=== PATIENT | female | born 1955 | race Caucasian/White ===

== ENCOUNTER 2016-03-20 13:26 | Inpatient (IN) | payer OTHER ==
[~2016-03-20] VITALS: Ht 167.6 cm; Wt 116.2 kg
[~2016-03-20 13:26] MED LIST: CALTTAB PO; CITA20 PO; METF500 PO; OXYC1SOL5 PO; PRIN20TA2 PO; RIVA10 PO; VITA200017 PO; WELLTAB39 PO; Z.0.WALKERFRONT
[2016-03-20 13:31] VITALS: BP 174/91; PULSE 87; RESP 18; TEMP 98.2; O2SAT 96
[2016-03-20] MEDS ORDERED: METF500T PO (17:26)
[2016-03-20] MEDS ORDERED: LISI-515 PO (17:26)
[2016-03-20] MEDS ORDERED: WELLTAB39 PO (17:26)
[2016-03-20] MEDS ORDERED: VITA100064 PO (17:26)
[2016-03-20] MEDS ORDERED: CELE20TA PO (17:26)
[2016-03-20 17:29] VITALS: BP 160/91; PULSE 82; RESP 18; O2SAT 98
--- NOTE | 2016-03-20 17:49 | PD ---
HPI Chief Complaint: Bite or Sting Time Seen by Provider: 17:28 Travel History International Travel<30 days: No Contact w/Intl Traveler<30days: No Traveled to known affect area: No History of Present Illness HPI 60-year-old female complains of pain swelling on the left fifth finger with redness extending to the left arm today. Patient got bit by her own cat Last night. Patient states that she had small amount of pus draining from the left fifth finger today. Patient states that she noticed redness streaking extending from the left fifth finger of her left hand and left forearm to the elbow. Patient denies any fever chills. Patient's up-to-date with TD booster. PFSH Past Medical History Hx Anticoagulant Therapy: No Arthritis: Yes Blood Disorders: No Heart Rhythm Problems: No Cancer: No Cardiac Catheterization: No Cardiovascular Problems: Yes (HTN) High Cholesterol: Yes Chemotherapy: No Congestive Heart Failure: No Cerebrovascular Accident: No Diabetes: Yes Patient Takes Glucophage: Yes Diminished Hearing: No Endocrine: Yes Gastrointestinal Disorders: Yes Genitourinary: No Hepatitis: No Hiatal Hernia: No Hypertension: Yes Immune Disorder: No Implanted Vascular Access Dvce: Yes Musculoskeletal: Yes (ARTHRITIS) Neurologic: No Psychiatric: No Reproductive: No Respiratory: No Myocardial Infarction: No Thyroid Disease: No Tetanus Vaccination: < 5 Years Influenza Vaccination: Yes ?: Not LMP: [place]um[place]- Menopausal: Yes : 3 Para: 3 Miscarriage: 0 : 0 Past Surgical History AICD: No Arteriovenous Shunt: No Coronary Artery Bypass Graft: No Hysterectomy: No Insulin Pump: No Joint Replacement: Yes (BIIL. KNEES) Oral Surgery: Yes (T & A) Pacemaker: No Tonsillectomy: Yes Other Surgery: Yes Family History Family Myocardial Infarction: Yes (FATHER [place] AND CABG) Social History Alcohol Use: No Tobacco Use: No Substance Use: No Allergies-Medications (Allergen,Severity, Reaction): Coded Allergies: No Known Allergies (Verified , 03/20/16) Reported Meds & Prescriptions Reported Meds & Active Scripts Active Reported Vitamin D (Cholecalciferol) 1,000 Unit Tab 5,000 Units PO DAILY Celexa (Citalopram Hydrobromide) 20 Mg Tab 20 Mg PO DAILY Wellbutrin Xl 24 HR (Bupropion HCl) 300 Mg Tab 300 Mg PO DAILY Metformin (Metformin HCl) 500 Mg Tab 500 Mg PO DAILY With a meal Lisinopril 20 Mg Tab 20 Mg PO DAILY Review of Systems General / Constitutional: No: Fever Eyes: No: Visual changes HENT: No: Headaches Cardiovascular: No: Chest Pain or Discomfort Respiratory: No: Shortness of Breath Gastrointestinal: No: Abdominal Pain Genitourinary: No: Dysuria Musculoskeletal: No: Pain Skin: No Rash Neurologic: No: Weakness Psychiatric: No: Depression Endocrine: No: Polydipsia Hematologic/Lymphatic: No: Easy Bruising Physical Exam Narrative GENERAL: Well-nourished, well-developed patient. SKIN: Warm and dry. HEAD: Normocephalic. EYES: No scleral icterus. No injection or drainage. NECK: Supple, trachea midline. No JVD or lymphadenopathy. CARDIOVASCULAR: Regular rate and rhythm without murmurs, gallops, or rubs. RESPIRATORY: Breath sounds equal bilaterally. No accessory muscle use. GASTROINTESTINAL: Abdomen soft, non-tender, nondistended. MUSCULOSKELETAL: No cyanosis, or edema. BACK: Nontender without obvious deformity. No CVA tenderness. Patient has a small pustule lesions on the middle phalanx left fifth finger. Patient has moderate redness swelling tenderness on the proximal phalange with redness streaking extended from the left fifth finger to the left hand to the forearm up to the elbow. Full range of motion all joints. No tenderness on palpation on the flexor tendon area of the left fifth finger. Patient can flex and extend the left fifth finger without any problem. Data Data Last Documented VS Vital Signs Date Time Temp Pulse Resp B/P Pulse Ox O2 Delivery O2 Flow Rate FiO2 03/20/16 17:29 82 18 160/91 98 Room Air 03/20/16 13:31 98.2 Orders Complete Blood Count With Diff (03/20/16 17:33) Comprehensive Metabolic Panel (03/20/16 17:33) Prothrombin Time / Inr (Pt) (03/20/16 17:33) Act Partial Throm Time (Ptt) (03/20/16 17:33) Iv Access Insert/Monitor (03/20/16 17:33) Ecg Monitoring (03/20/16 17:33) Oximetry (03/20/16 17:33) Blood Culture (03/20/16 17:33) Wound Culture And Gram Stain (03/20/16 17:33) [facility] Medical Decision Making Medical Screen Exam Complete: Yes Emergency Medical Condition: Yes Differential Diagnosis Differential diagnosis including cellulitis with lymphangitis, abscess. Narrative Course 60-year-old female with cat bite to the left fifth finger with infection and with redness streaking extending to the left arm. Unasyn 3 g IV given. Diagnosis Primary Impression: Cellulitis with lymphangitis Admitting Information Admitting Physician Requests: Admit To Grace MD Mar 20, 2016 17:49
[2016-03-20] MEDS ORDERED: AMPICILLIN-SULBACTAM INJ 3 GM in SODIUM CHLORIDE 0.9% INJ 100 ML IV ONE (18:00)
[2016-03-20 18:07] VITALS: O2SAT 98
[2016-03-20 18:28] LABS: AUTOMATED NEUTROPHIL # 6.7 TH/MM3 (1.8-7.7); BASOPHIL # 0.2 TH/MM3 (0-0.2); BASOPHIL % 1.6 % (0.0-2.0); EOSINOPHIL # 0.2 TH/MM3 (0-0.4); EOSINOPHIL % 1.9 % (0.0-4.0); HEMATOCRIT 41.3 % (35.0-46.0); HEMO FLAGS DIFF FINAL; LYMPH % 28.5 % (9.0-44.0); LYMPHOCYTE # 3.2 TH/MM3 (1.0-4.8); MEAN CELL VOLUME 81.1 FL (80.0-100.0); MEAN CORPUSCULAR HEMOGLOBIN 26.4 PG (27.0-34.0); MEAN CORPUSCULAR HGB CONC 32.5 % (32.0-36.0); MONO % 7.1 % (0.0-8.0); NEUT % 60.9 % (16.0-70.0); PLATELET COUNT 352 TH/MM3 (150-450); RED BLOOD COUNT 5.09 MIL/MM3 (4.00-5.30); RED CELL DISTRIBUTION WIDTH 14.4 % (11.6-17.2); WHITE BLOOD COUNT 11.1 TH/MM3 (4.0-11.0)
[2016-03-20] MEDS ORDERED: SODIUM CHLORIDE 0.9% FLUSH 5 ML FLUSH IVF PRN (18:30)
[2016-03-20] MEDS ORDERED: ONDANSETRON HCL 4 MG/2 ML VIAL IV PRN (18:30)
[2016-03-20] MEDS ORDERED: ACETAMINOPHEN 325 MG TAB PO PRN (18:30)
[2016-03-20 18:31] LABS: CHLORIDE 105 MEQ/L (98-107); POTASSIUM 3.9 MEQ/L (3.5-5.1); SODIUM (NA) 141 MEQ/L (136-145)
[2016-03-20 18:34] LABS: ANION GAP 8 MEQ/L (5-15); BICARBONATE 27.8 MEQ/L (21.0-32.0)
[2016-03-20 18:35] LABS: BLOOD UREA NITROGEN 17 MG/DL (7-18)
[2016-03-20 18:36] LABS: APTT (PATIENT) 25.5 SEC (24.3-30.1); INTERNATIONAL NORMALIZED RATIO 0.9 RATIO; PROTHROMBIN TIME - PATIENT 10.1 SEC (9.8-11.6)
[2016-03-20 18:37] LABS: ALT (GPT) 17 U/L (10-53)
[2016-03-20 18:38] LABS: AST (GOT) 14 U/L (15-37); GLOMERULAR FILTRATION RATE 96 ML/MIN (>89)
[2016-03-20 18:39] LABS: TOTAL BILIRUBIN ADULT 0.3 MG/DL (0.2-1.0)
[2016-03-20 18:40] LABS: ALKALINE PHOSPHATASE 99 U/L (45-117)
[2016-03-20 19:20] VITALS: O2SAT 98
--- NOTE | 2016-03-20 19:25 | RADHPO ---
EXAM DATE/TIME: 03/20/2016 18:33 [facility] COMPARISON: No previous studies available for comparison. INDICATIONS : Cat bite left hand fifth digit. MEDICAL HISTORY : None. SURGICAL HISTORY : None. ENCOUNTER: Initial ACUITY: 2 days PAIN SCORE: 0/10 LOCATION: Left hand, fifth digit FINDINGS: Examination of the fifth digit of the left hand demonstrates soft tissue swelling of the left fifth f casandra. Mild osteoarthritis of the left hand. No dislocation. CONCLUSION: 1. Soft tissue swelling of the left fifth finger. Mild osteoarthritis of the left hand. Phillip Jane MD on March 20, 2016 at 19:23 Board Certified Radiologist. This report was verified electronically.
[2016-03-20 21:04] VITALS: BP 122/61; PULSE 78; RESP 16; TEMP 98.7; O2SAT 81
[2016-03-20] MEDS: SODIUM CHLORIDE 0.9% FLUSH 5 ML FLUSH IVF SCH (21:23)
--- NOTE | 2016-03-20 21:38 | MB ---
cc: IRENA ACE MD DATE OF CONSULTATION 03/20/2016 REASON FOR CONSULTATION Cat bite to left little finger. HISTORY OF THE PRESENT ILLNESS The patient is a 60-year-old right-hand dominant female presenting with complaints of cat bite to the left little finger yesterday. She states she was bitten by her own cat last night. The patient woke up this morning noticed pain, swelling involving the left little finger. She also noticed redness streaking around the left upper extremity. Denies any fever. Denies any drainage. Denies any other injuries. PAST MEDICAL AND SURGICAL HISTORY Are noted, significant for hypertension and joint replacement bilaterally. PHYSICAL EXAMINATION GENERAL: The patient is alert, oriented x3. EXTREMITIES: Examination of left upper extremity reveals redness streaking along the dorsal aspect of the hand, forearm up to the arm. There is a bite wound over the volar ulnar aspect of the middle phalanx region of the little finger with surrounding erythema. There is no tenderness over the flexor tendon sheath. Tenderness noted over the bite region. Mild purulent-like material noted over the bite region. The patient is able to make a full fist. She has full extension of the finger. She has intact sensation distally. LABORATORY DATA AND IMAGING Her lab work and x-rays are pending. ASSESSMENT A 60-year-old female with cat bite to the left little finger one day. PLAN Bite site was opened up to drain material from within. Thorough wash was given. This was done bedside. Dry dressing was applied. The patient is getting admitted in the hospital for IV antibiotics. She has been advised regarding limb elevation and range of motion exercises. Hand surgery will follow. If there is any worsening of symptoms she will need a formal incision and drainage. Irena Ace MD SE/KARLIE /6:29 PM /9:33 PM MTDYang
[2016-03-20] MEDS: AMPICILLIN-SULBACTAM INJ 3 GM in SODIUM CHLORIDE 0.9% INJ 100 ML IV SCH (23:19)
[2016-03-21] VITALS: BP 144/85; PULSE 76; RESP 18; TEMP 97.7; O2SAT 97
[2016-03-21 04:00] VITALS: BP 145/87; PULSE 96; RESP 18; TEMP 95.9; O2SAT 98
[2016-03-21] MEDS: AMPICILLIN-SULBACTAM INJ 3 GM in SODIUM CHLORIDE 0.9% INJ 100 ML IV SCH ×2 (05:52→12:59)
[2016-03-21 08:00] VITALS: BP 168/96; PULSE 73; RESP 18; TEMP 97.7; O2SAT 97
[2016-03-21] MEDS: SODIUM CHLORIDE 0.9% FLUSH 5 ML FLUSH IVF SCH (08:49)
[2016-03-21] MEDS ORDERED: metFORMIN HCL 500 MG TAB PO SCH ×2 (09:00→16:00)
[2016-03-21] MEDS ORDERED: LISINOPRIL 20 MG TAB PO SCH ×2 (09:00→16:00)
[2016-03-21] MEDS ORDERED: ACETAMINOPHEN/HYDROcodone 325 MG/7.5 MG TAB PO PRN (09:15)
[2016-03-21] MEDS ORDERED: ACETAMINOPHEN/HYDROcodone 325 MG/5 MG TAB PO PRN (09:15)
[2016-03-21] MEDS ORDERED: NALOXONE HCL 0.4 MG/ML AMP IV PRN (09:15)
[2016-03-21] MEDS ORDERED: GLUCAGON 1 MG/ML VIAL OTHER PRN (09:15)
[2016-03-21] MEDS ORDERED: ACETAMINOPHEN 325 MG TAB PO PRN (09:15)
[2016-03-21] MEDS ORDERED: SENNOSIDES 8.6 MG TAB PO PRN (09:15)
[2016-03-21] MEDS ORDERED: SODIUM CHLORIDE 0.9% FLUSH 5 ML FLUSH FLUSH PRN (09:15)
[2016-03-21] MEDS ORDERED: DEXTROSE 50% IN WATER 50 ML VIAL(D50) IV PUSH PRN (09:15)
[2016-03-21] MEDS ORDERED: DOCUSATE SODIUM 100 MG CAP PO SCH (10:00)
[2016-03-21] MEDS ORDERED: ENOXAPARIN SODIUM 40 MG/0.4 ML SYRINGE SQ SCH (10:00)
[2016-03-21] MEDS ORDERED: INSULIN ASPART SUPPLEMENTAL SCALE SQ SCH (11:00)
[2016-03-21 12:00] VITALS: BP 152/96; PULSE 76; RESP 18; TEMP 97.6; O2SAT 97
--- NOTE | 2016-03-21 14:12 | HHI.HP ---
cc: Kush Lindsay MD [facility] Service [facility] Primary Care Physician Kush Lindsay MD Admission Diagnosis cat Bite with cellulitis and lymphangitis Diagnoses: (1) Cat bite of finger Diagnosis: Principal (2) Cellulitis with lymphangitis Diagnosis: Principal (3) Dizziness Diagnosis: Principal (4) HTN (hypertension) Diagnosis: Principal Chief Complaint: cat bite Travel History International Travel<30 Days: No Contact w/Intl Traveler <30 Da: No Traveled to Known Affected Are: No History of Present Illness 60-year-old female with history of prediabetes and hypertension presents with complaint of cat bite to her left fifth finger. Bite occurred the night before last and it was her cat. Patient states she had a streak up her arm which is better now. She denies any fevers or chills. Patient does state she started to have dizziness yesterday morning and she was dizzy when she started to ambulate today but she was able to use the wall and it improved. No other symptoms reported. Dr. Johnson, hand surgeon evaluated the patient, opened up the site and washed it out. Review of Systems Other ROS x 10 negative unless otherwise indicated. Past Family Social History Past Medical History Prediabetes Hypertension Past Surgical History Bilateral knee replacements R hip replacement in September 2015. Reported Medications Vitamin D (Cholecalciferol) 1,000 Unit Tab 5,000 Units PO DAILY Celexa (Citalopram Hydrobromide) 20 Mg Tab 20 Mg PO DAILY Wellbutrin Xl 24 HR (Bupropion HCl) 300 Mg Tab 300 Mg PO DAILY Metformin (Metformin HCl) 500 Mg Tab 500 Mg PO DAILY With a meal Lisinopril 20 Mg Tab 20 Mg PO DAILY Allergies: Coded Allergies: No Known Allergies (Verified , 03/20/16) Family History Father: Heart disease, COPD Mother: COPD. Social History No history of cigarette smoking. Physical Exam Vital Signs Vital Signs Date Time Temp Pulse Resp B/P Pulse Ox O2 Delivery O2 Flow Rate FiO2 03/21/16 12:00 97.6 76 18 152/96 97 03/21/16 08:00 97.7 73 18 168/96 97 03/21/16 04:00 95.9 96 18 145/87 98 03/21/16 00:00 97.7 76 18 144/85 97 03/20/16 21:04 98.7 78 16 122/61 81 Room Air 03/20/16 19:20 98 03/20/16 18:07 98 Room Air 03/20/16 17:29 82 18 160/91 98 Room Air Physical Exam GENERAL: This is a well-nourished, well-developed patient, in no apparent distress. SKIN: Tiny wound noted to the left fifth finger with only slight local light erythema. No erythema to the L hand or arm otherwise. HEAD: Atraumatic. Normocephalic. EYES: No scleral icterus. No injection or drainage. NECK: Trachea midline. CARDIOVASCULAR: Regular rate and rhythm. 2/ systolic murmur. RESPIRATORY: Clear to auscultation. Breath sounds equal bilaterally. No wheezes , rales, or rhonchi. GASTROINTESTINAL: Abdomen soft, non-tender, nondistended. MUSCULOSKELETAL: No swelling to the left hand or arm. Patient moves her L fingers normally. NEUROLOGICAL: Awake and alert. Motor grossly within normal limits. Normal speech. PSYCHIATRIC: Normal mood and affect. Insight and judgement normal. Laboratory Laboratory Tests Test 03/20/16 17:59 White Blood Count 11.1 Red Blood Count 5.09 Hemoglobin 13.4 Hematocrit 41.3 Mean Corpuscular Volume 81.1 Mean Corpuscular Hemoglobin 26.4 Mean Corpuscular Hemoglobin 32.5 Concent Red Cell Distribution Width 14.4 Platelet Count 352 Mean Platelet Volume 6.9 Neutrophils (%) (Auto) 60.9 Lymphocytes (%) (Auto) 28.5 Monocytes (%) (Auto) 7.1 Eosinophils (%) (Auto) 1.9 Basophils (%) (Auto) 1.6 Neutrophils # (Auto) 6.7 Lymphocytes # (Auto) 3.2 Monocytes # (Auto) 0.8 Eosinophils # (Auto) 0.2 Basophils # (Auto) 0.2 CBC Comment DIFF FINAL Differential Comment Prothrombin Time 10.1 Prothromb Time International 0.9 Ratio Activated Partial 25.5 Thromboplast Time Sodium Level 141 Potassium Level 3.9 Chloride Level 105 Carbon Dioxide Level 27.8 Anion Gap 8 Blood Urea Nitrogen 17 Creatinine 0.63 Estimat Glomerular Filtration 96 Rate Random Glucose 94 Calcium Level 9.2 Total Bilirubin 0.3 Aspartate Amino Transf 14 (AST/SGOT) Alanine Aminotransferase 17 (ALT/SGPT) Alkaline Phosphatase 99 Total Protein 7.9 Albumin 4.0 Date/Time Procedure Status Source Growth 03/20/16 18:04 Aerobic Blood Culture - Preliminary Resulted Blood Peripheral NO GROWTH IN 1 DAY 03/20/16 18:04 Anaerobic Blood Culture - Preliminary Resulted Blood Peripheral NO GROWTH IN 1 DAY 03/20/16 17:53 Gram Stain - Final Resulted Wound Finger 03/20/16 17:53 Wound Culture Resulted Wound Finger Pending Result Diagram: 03/20/16175803/20/161758 Imaging Last Impressions Finger X-Ray 03/20/161758 Signed Impressions: Service Date/Time: Sunday, March 20, 2016 18:33 - CONCLUSION: 1. Soft tissue swelling of the left fifth finger. Mild osteoarthritis of the left hand. Phillip Jane MD Assessment and Plan Assessment and Plan 60-year-old female with: Cat bite with cellulitis and lymphangitis: Only small wound to the left fifth finger; cellulitis and lymphangitis resolved. Mild leukocytosis of 11.1. Afebrile. Finger x-ray personally reviewed without evidence of acute bony injury. Patient was evaluated by hand surgeon yesterday who washed out the area. She has had significant improvement with IV Unasyn. -Spoke with hand surgeon who states patient follow-up outpatient. -Patient to be discharged with Augmentin. Dizziness: Secondary complaint. Likely orthostatic. No hypotension evident. Patient was informed to get up slowly and sit prior to standing. Hypertension: BP 174/91 on arrival. Patient checks her blood pressure at home 3 times weekly. BP 152/96 at noon, but patient did not receive her daily lisinopril. -Restart lisinopril now. -Monitor BP Chronic medical problems: Continue home medications. DVT prevention: oob ad mattie Discharge disposition: Home in stable condition. Diet: Heart healthy Medications: Prescription for Augmentin x 10 days. Resume home meds. Activity: Regular Follow-up: PCP 1 week; Dr. Johnson hand surgeon within 1 week. Written by Maylin Cruz PA-C acting as scribe for Dr. Ascencio on 03/21/16 at 1400 hours. The documentation accurately reflects the work and decisions performed face-to- face by me Dr. Ascencio on 03/21/16 at 1400 hours. Discussed Condition With Dr. Johnson Physician Certification 2 Midnight Certification Type: Admission for Inpatient Services Order for Inpatient Services The services are ordered in accordance with Medicare regulations or non- Medicare payer requirements, as applicable. In the case of services not specified as inpatient-only, they are appropriately provided as inpatient services in accordance with the 2-midnight benchmark. Estimated LOS (days): 2 days is the estimated time the patient will need to remain in the hospital, assuming treatment plan goals are met and no additional complications. Post-Hospital Plan: [employer] Maylin Cruz Mar 21, 2016 14:12
--- NOTE | 2016-03-21 14:47 | HHI.DCPOC ---
Discharge Care Plan Diagnosis: (1) Cat bite of finger (2) Cellulitis with lymphangitis (3) Dizziness (4) HTN (hypertension) Goals to Promote Your Health * To prevent worsening of your condition and complications * To maintain your health at the optimal level Directions to Meet Your Goals Take your medications as prescribed Follow your dietary instruction Follow activity as directed Keep your appointments as scheduled Take your immunizations and boosters as scheduled If your symptoms worsen call your PCP, if no PCP go to Urgent Care Center or Emergency Room Smoking is Dangerous to Your Health. Avoid second hand smoke Call the 24-hour hour crisis hotline for domestic abuse at Maylin Cruz Mar 21, 2016 14:47
[2016-03-21] MEDS ORDERED: AUGM875T PO (14:50)
[2016-03-21] MEDS ORDERED: CITALOPRAM HYDROBROMIDE 20 MG TAB PO SCH (16:00)
[2016-03-21] MEDS ORDERED: CHOLECALCIFEROL (VIT D3) 5000 UNIT CAP PO SCH (16:00)
[2016-03-21] MEDS ORDERED: buPROPion HCL 150 MG EXTENDED RELEASE TAB PO SCH (16:00)
[2016-03-21] MEDS ORDERED: SODIUM CHLORIDE 0.9% FLUSH 5 ML FLUSH FLUSH SCH (21:00)
== END 2016-03-21 16:44 | disposition home or self-care (01) | DRG 603 ==
LOC: PHED 13:26 → PHEDA 18:26 → PH3B 21:45
PROVIDERS: ADMIT Hospitalist; ATTEND Hospitalist
DX: L03.012 Cellulitis of left finger (principal); I89.1 Lymphangitis; I10 Essential (primary) hypertension; E78.00 Pure hypercholesterolemia, unspecified; W55.01XA Bitten by cat, initial encounter; R73.03 Prediabetes; Z96.653 Presence of artificial knee joint, bilateral; Z96.641 Presence of right artificial hip joint; M19.042 Primary osteoarthritis, left hand; R42 Dizziness and giddiness
CPT/HCPCS: 73140; 80053; 82948; 85025; 85610; 85730; 87040; 87070; 87205; 96374; J0295

== ENCOUNTER 2017-03-05 08:26 | Emergency (ER) | payer OTHER ==
[2017-03-05] MEDS: ONDANSETRON HCL 4 MG/2 ML VIAL IVP (08:54)
[2017-03-05] MEDS: SODIUM CHLORIDE 0.9% FLUSH 10 ML FLUSH IV FLUSH (08:54)
[2017-03-05] MEDS: MORPHINE SULFATE 2 MG/ML INJ IV PUSH (08:54)
== END 2017-03-05 10:50 | disposition home or self-care (01) ==
LOC: NEPE 08:26
DX: S16.1XXA Strain of muscle, fascia and tendon at neck level, initial encounter (principal); V89.2XXA Person injured in unspecified motor-vehicle accident, traffic, initial encounter; Y92.410 Unspecified street and highway as the place of occurrence of the external cause
CPT/HCPCS: 70450; 72125; 96374; 96375; 99285-25